=== PATIENT | male | born 2000 | race Caucasian/White ===

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

== ENCOUNTER 2024-09-01 02:46 | Emergency (ER) | payer SELFPAY ==
[~2024-09-01] VITALS: Ht 167.6 cm; Wt 128.9 kg
[2024-09-01 04:08] LABS: Rapid Strep A Screen-Throat Negative
--- NOTE | 2024-09-01 04:19 | ED.PDOC ---
History of Present Illness HPI Comments 24-year-old male who came to ER for sore throat. Patient has been drinking alcohol heavily tonight. As he went down to sleep, he suddenly felt throat pain. Denies any nausea or vomiting. Denies any chest pains or shortness of breath. Patient denies any trauma to the back of the throat. No other upper respiratory symptoms. Patient is we will to manage secretions. He is able to swallow. No difficulty breathing. Chief Complaint: Sore Throat Time Seen by MD: 04:18 Primary Care Provider: Tia Reviewed Notes: Nurses Notes Allergies: Coded Allergies: NO KNOWN ALLERGIES (Unverified , 11/25/09) Home Meds Reported Medications Albuterol Sulfate (Ventolin Hfa) Aer 11/25/09 Information Source: Patient Mode of Arrival: Ambulatory Severity: Moderate Timing: Hours Duration: Since onset Review of Systems REVIEW OF SYSTEMS: No fever, no chills, or fatigue HEENT: (+) sore throat, no earache, no congestion, no neck pain. Cardiac: No chest pain. No palpitations. Lungs: No shortness of breath, no cough. GI: No nausea, no vomiting, no diarrhea, no constipation, no abdominal pain : No dysuria, frequency, or urgency. No hematuria. Musculoskeletal: No joint pain , no joint swelling, no extremity edema. Skin: No rash, no itching. Neuro: No headache, no dizziness, no weakness Vital Signs Vital Signs Date Time Temp Pulse Resp B/P (MAP) Pulse Ox O2 Delivery O2 Flow Rate FiO2 09/01/24 05:25 Room Air* 0 21 09/01/24 05:19 97.9 61 18 135/80 (98) 95 97.9 Physical Exam General: Awake, alert and oriented. No acute distress. Skin: Skin in warm, dry and intact without rashes or lesions. HEENT: The head is normocephalic and atraumatic. Conjunctivae are clear without exudates or hemorrhage. Sclera is non-icteric. Uvula swelling noted. No exudates. Mild erythema. Uvula midline. Neck: Normal range of motion. No JVD. Cardiac: Regular rate Respiratory: No signs of respiratory distress. No Stridor. No drooling. Extremities: Upper and lower extremities are atraumatic in appearance without deformity. Neurological: The patient is awake, alert and oriented to person, place, and time with normal speech. Speech is clear. There is no facial asymmetry. Psychiatric: Appropriate mood and affect. Good judgement and insight. Past Medical History PAST MEDICAL HISTORY: Asthma Surgical History: Denies all surgeries Family History Family History: Reviewed,noncontributory to illness Social History Smoker: Non-Smoker Alcohol: Heavy Drugs: Denies Drug Use Lives In: Home Was a procedure done? Was a procedure done?: No Differential Dx Considerations may include: Pharyngitis, tonsillitis, pharyngeal abscess, pharyngeal trauma, X-Ray, Labs, Meds, VS Vital Signs Date Time Temp Pulse Resp B/P (MAP) Pulse Ox O2 Delivery O2 Flow Rate FiO2 09/01/24 05:25 Room Air* 0 21 09/01/24 05:19 97.9 61 18 135/80 (98) 95 97.9 09/01/24 02:54 98.0 108 18 120/82 (95) 94 98.0 Lab Test 09/01/24 03:00 Range/Units Group A Streptococcus Rapid Negative Current Medications Medications (Trade) Dose Ordered Sig/Alexandru Route Start Time Stop Time Status Last Admin Dexamethasone Sodium Phosphate (Decadron Injection) 10 mg ONCE ONCE IM 09/01/24 05:00 09/01/24 05:01 DC 09/01/24 05:11 Time of 1ST Reevaluation: 04:16 Reevaluation 1ST: Unchanged Patient Education/Counseling: Need For Follow Up Family Education/Counseling: Need For Follow Up Departure 1 Departure Time of Disposition: 04:54 Impression: Primary Impression: Pharyngitis Disposition: 01 HOME / SELF CARE / HOMELESS Condition: Stable Additional Instructions: ED DISCHARGE INSTRUCTIONS Instructions: Please read all instructions provided in this packet carefully. Although you have been discharged from the Emergency Department, this does not mean that you have a "clean bill of health". No definitive diagnosis for your symptoms has been made today. It is possible that you are in the process of developing a serious illness. This is why you must return to the ED without fail if any new or worsening symptoms (especially if your symptoms include chest pain, trouble breathing, abdominal pain, fever, headache, confusion, trouble seeing, or trouble walking) It is also very important that you see a primary care doctor within the next 1-3 days to follow up. If you are unable to get an appointment, return to the ED for re-evaluation Sore Throat: Care Instructions Mouth, showing throat, tonsils, tongue, and teeth Overview Infection by bacteria or a virus causes most sore throats. Cigarette smoke, dry air, air pollution, allergies, and yelling can also cause a sore throat. Sore throats can be painful and annoying. Fortunately, most sore throats go away on their own. If you have a bacterial infection, your doctor may prescribe antibiotics. Follow-up care is a parks part of your treatment and safety. Be sure to make and g o to all appointments, and call your doctor if you are having problems. It's also a good idea to know your test results and keep a list of the medicines you take. How can you care for yourself at home? If your doctor prescribed antibiotics, take them as directed. Do not stop taking them just because you feel better. You need to take the full course of antibiotics. Gargle with warm salt water several times a day to help reduce swelling and relieve pain. Mix 1/2 teaspoon of salt in 1 cup of warm water. Take an tgiy-aps-gwthxqg pain medicine, such as acetaminophen (Tylenol), ibuprofen (Advil, Motrin), or naproxen (Aleve). Read and follow all instructions on the label. Be careful when taking yxlt-jmk-leyptfe cold or flu medicines and Tylenol at the same time. Many of these medicines have acetaminophen, which is Tylenol. Read the labels to make sure that you are not taking more than the recommended dose. Too much acetaminophen (Tylenol) can be harmful. Drink plenty of fluids. Fluids may help soothe an irritated throat. Hot fluids, such as tea or soup, may help decrease throat pain. Use bquh-qlo-hboupml throat lozenges to soothe pain. Regular cough drops or hard candy may also help. These should not be given to young children because of the risk of choking. Do not smoke or allow others to smoke around you. If you need help quitting, talk to your doctor about stop-smoking programs and medicines. These can increase your chances of quitting for good. Use a vaporizer or humidifier to add moisture to your bedroom. Follow the directions for cleaning the machine. When should you call for help? Call your doctor now or seek immediate medical care if: You have trouble breathing. Your sore throat gets much worse on one side. You have new or worse trouble swallowing. You have a new or higher fever. Watch closely for changes in your health, and be sure to contact your doctor if you do not get better as expected. Credits for Sore Throat: Care Instructions Current as of: February 20, 2024 Author: [employer] Staff Clinical Review Board All [employer] education is reviewed by a team that includes physicians, nurses, advanced practitioners, registered dieticians, and other healthcare professionals. Comments 24-year-old male with uvular swelling. Strep screen negative. Patient has no difficulty managing his secretions, no shortness of breath, no airway edema or stridor. Dose of Decadron administered in the ED. patient and family member at bedside advised to follow up for further evaluation or return to the emergency department with any new worsening or concerning symptoms. -------- I reviewed the following notes from the pt's past medical encounters: N/A The following tests were ordered, and results were reviewed by me: (See diagnostic results section) The following test were independently interpreted by me: N/A Additional information was gathered from interviewing the following independent historians: Family member I reviewed and agreed with the following test results read by other providers: N/A I discussed treatments and results with patient and family member at bedside Decision regarding hospitalization or escalation of hospital level of care: Risks and benefits of admission for further treatment of patient's condition was considered however due to patient's stable condition patient will be discharged to follow up closely or return to care for worsening of condition or inability to follow up. Critical Care Note Critical Care Time?: No Stability Stability form required: No Heart Score Heart Score: Heart Score Response (Comments) Value History N/A 0 EKG N/A 0 Age N/A 0 Risk Factors N/A 0 Troponin N/A 0 Total 0 I personally scribed for JAYLENE HOUSTON MD ([email or web address]) on 09/01/24 at 04:19. Electronically submitted by Ritesh Fernandez ([email or web address]). JAYLENE HOUSTON MD September 01, 2024 04:19
[2024-09-01] MEDS: DexAMETHasone SOD PHOS 10MG/1ML VIAL INJ IM ONE (05:11)
[2024-09-01 05:19] VITALS: BP 135/80; PULSE 61; RESP 18; TEMP 97.9; O2SAT 95
== END 2024-09-01 05:28 | disposition home or self-care (01) ==
LOC: ER 02:46
DX: J02.9 Acute pharyngitis, unspecified (principal); J45.909 Unspecified asthma, uncomplicated
CPT/HCPCS: 87070; 87880; 96372; 99283; J1100